=== PATIENT | male | born 1965 | race Caucasian/White ===

== ENCOUNTER → 2016-12-05 | Outpatient (CLI) | payer BC ==
--- NOTE | 2016-12-05 12:00 | Diagnostic Imaging Report ---
Indication: Choking feeling when eating or swallowing Technique: Patient ingested effervescent granules, thick and thin liquid barium, both upright and prone under direct fluoroscopic visualization. Rapid sequence spot images and overhead films were obtained Total fluoroscopy time 1.8 minutes. Total dose area product 872 dGycm2 Comparison: None Findings: Esophagus demonstrates normal distensibility and motility. No strictures, filling defects, or ulcerations demonstrated. Patient ingested thin liquid barium in the lateral projection. No aspiration or penetration demonstrated. With the patient was prone, a small sliding-type hiatal hernia was demonstrated. No gastroesophageal reflux observed fluoroscopically Impression: Minimal sliding-type hiatal hernia, visible only with the patient prone. Otherwise negative.
== END | disposition home or self-care (01) ==
LOC: RAD 08:45
DX: K21.9 Gastro-esophageal reflux disease without esophagitis (principal)
CPT/HCPCS: 74220